=== PATIENT | female | born 1995 | race Caucasian/White ===

== ENCOUNTER 2020-09-27 11:05 | Emergency (ER) | payer OTHER, SELFPAY ==
[2020-09-27 11:18] VITALS: BP 109/88; PULSE 109; RESP 18; TEMP 36.3; O2SAT 100
--- NOTE | 2020-09-27 11:22 | ED.URI ---
HPI - URI/Sore Throat General Chief Complaint: Upper Respiratory Infection Stated Complaint: cough/congestion/earache Source: patient and RN notes reviewed Limitations: no limitations History of Present Illness HPI Narrative: The patient, previously mostly healthy and Covid vaccinated reportedly, presents with earache. Patient states she has a about a week long history of congestion and mild cough, followed by a couple day history of left ear pain. No fever, sore throat, loss of taste/smell, S OB wheezing/sneezing, CP,; symptoms are mild. Related Data Home Medications Medication Instructions Recorded Confirmed dextroamphetamine-amphetamine PO 09/27/20 [Adderall XR] erenumab-aooe [Aimovig mg SUBCUT 09/27/20 Autoinjector] sumatriptan succinate mg PO 09/27/20 Allergies Allergy/AdvReac Type Severity Reaction Status Date / Time No Known Allergies Allergy Unverified 05/22/18 09:42 Review of Systems Review of Systems: Narrative: General/Constitutional: No weight loss,fever Eyes: N0: Redness,discharge Ears/Nose/Throat: No: Epistaxis,ear discharge Respiratory: Denies: Hemoptysis Gastrointestinal: No Vomiting, Bleeding-rectal Skin: No Lumps, eruption Neurologic: No Focal Weakness,Sz Hematologic: Denies: Petechiae/Purpura Psychiatric: No: Suicida ideationl All Other Systems: Reviewed and Negative PMFSH Comments At time of signature, agree with nursing past medical, surgical, social and family history. There is no relevant family history pertinent to the presenting complaint Exam Narrative: Exam Narrative: General Appearance: Well appearing, Well nourished EYE: PERRLA, Conjunctiva clear Ears: Auditory canal normal, left TM bulging red, right TM normal Nose: Rhinorrhea, Mucousal erythema Mouth/Throat: MM moist, Uvula midline, Pharyngeal erythema Neck: Supple, No adenopathy Respiratory: No respiratory distress, Breath sounds equal, Clear to auscultation Cardiovascular: RRR, No JVD Musculoskeletal: Non tender, Normal strength Skin: Warm, Dry Neurological: A&O x3, Normal affect Course Vital Signs Vital signs: Vital Signs Temperature 97.3 F L 09/27/20 11:18 Pulse Rate 109 H 09/27/20 11:18 Respiratory Rate 18 09/27/20 11:18 Blood Pressure 109/88 09/27/20 11:18 Pulse Oximetry 100 09/27/20 11:18 Temperature 97.3 F L 09/27/20 11:18 Pulse Rate 109 H 09/27/20 11:18 Respiratory Rate 18 09/27/20 11:18 Blood Pressure 109/88 09/27/20 11:18 Pulse Oximetry 100 09/27/20 11:18 Discharge Plan Discharge Clinical Impression: Acute otitis media, left Patient Disposition: Home, Self-Care Condition: Stable Instructions: Antibiotic Form, Ear Infection (GEN) Prescriptions: New azelastine 137 mcg (0.1 %) aerosol,spray 137 mcg NASAL Q12H Qty: 30 RF: 0 cefuroxime axetil 500 mg tablet 500 mg PO Q12H Qty: 14 RF: 0 No Action sumatriptan succinate 100 mg tablet PO RF: 0 dextroamphetamine-amphetamine [Adderall XR] 20 mg capsule,extended release 24hr PO RF: 0 Aimovig Autoinjector 140 mg/mL auto-injector SUBCUT RF: 0 Follow-up/Referrals: PHYSICIAN NOT ON STAFF,NONSTAFF [Primary Care Provider] -
== END 2020-09-27 11:52 | disposition home or self-care (01) ==
PROVIDERS: Emergency Provider Emergency Medicine
DX: H66.92 Otitis media, unspecified, left ear (principal); Z20.822 Contact with and (suspected) exposure to COVID-19
CPT/HCPCS: 87426; 99213; C9803; G0463

== ENCOUNTER 2021-03-23 19:02 | Emergency (ER) | payer OTHER, SELFPAY ==
[2021-03-23 19:08] VITALS: BP 129/88; PULSE 88; RESP 16; TEMP 36.3; O2SAT 100
--- NOTE | 2021-03-23 19:30 | ED.FEMALEGU ---
HPI - Female Genitourinary General Chief complaint: Urogenital-Female Stated complaint: UTI Time Seen by Provider: 03/23/21 19:10 Source: patient and RN notes reviewed History of Present Illness HPI Narrative: Patient is a 25-year-old female who presents the urgent care with complaints of a possible UTI. Patient states that for the last 2 days she has had burning and frequency of urination. Patient denies any fever, chills, nausea, vomiting. Denies of any [id number] medication for symptom relief. Patient states she does have a history of UTIs with the last one being this summer. No other acute complaints. Denies of any blood in the urine, back pain, abdominal pain. No acute distress noted. Patient aware of the plan of care. Some parts of this dictation were generated by voice recognition software and may contain typographical and/or grammatical inaccuracies. Related Data Home Medications Medication Instructions Recorded Confirmed dextroamphetamine-amphetamine PO 09/27/20 [Adderall XR] erenumab-aooe [Aimovig mg SUBCUT 09/27/20 Autoinjector] sumatriptan succinate mg PO 09/27/20 etonogestrel-ethinyl estradiol vag ring VAGINAL 03/23/21 [EluRyng] Allergies Allergy/AdvReac Type Severity Reaction Status Date / Time No Known Allergies Allergy Verified 03/23/21 19:07 Review of Systems Review of Systems: CONSTITUTIONAL: Denies fever, chills, or sweats. EYES: Denies visual changes, redness, or discharge. ENT: Denies rhinorrhea, congestion, sore throat, or otalgia. CARDIOVASCULAR: Denies chest pain, palpitations, or edema. RESPIRATORY: Denies cough or dyspnea. GASTROINTESTINAL: Denies abdominal pain, nausea, vomiting, or diarrhea. GENITOURINARY: Reports of dysuria and frequency SKIN: Denies rash or itching. MUSCULOSKELETAL: Denies back pain, joint pain, or myalgia. NEUROLOGIC: Denies headache, numbness, or weakness. All other systems reviewed are negative, except as documented in HPI. PMFSH Comments GENERAL: This is a well-nourished, well-developed patient, in no apparent distress. HEAD: normocephalic, atraumatic. EYES: PERRL. Sclera clear/white. Vision is grossly intact. EARS: External ears normal, auditory canals clear and without drainage, TMs normal without perforation. Hearing grossly intact. NOSE: External nose normal with no obvious nasal discharge, nares without redness, no rhinorrhea. THROAT: Mucous membranes moist, posterior pharynx clear. NECK: Neck supple, non-tender without lymphadenopathy, masses or thyromegaly. CARDIOVASCULAR: Regular rate and rhythm without murmurs, gallops, or rubs. RESPIRATORY: Clear to auscultation. Breath sounds equal bilaterally. No wheezes, rales, or rhonchi. GASTROINTESTINAL: Abdomen soft, non-tender, nondistended. Bowel sounds are active. No hepato-splenomegaly, or palpable masses. No guarding. SKIN: warm, intact with no suspicious lesions or rash, good texture and turgor. NEURO: awake, alert, and oriented to person, place and time. There were no obvious focal neurologic abnormalities. EXTREMITIES: No clubbing, cyanosis, or edema. No joint tenderness, effusion, or edema noted. No calf tenderness. Negative Homans sign bilaterally. BACK: Nontender without deformity or crepitance. No flank tenderness. Exam Narrative: GENERAL: This is a well-nourished, well-developed patient, in no apparent distress. HEAD: normocephalic, atraumatic. EYES: PERRL. Sclera clear/white. Vision is grossly intact. EARS: External ears normal NOSE: External nose normal with no obvious nasal discharge, nares without redness, no rhinorrhea. THROAT: Mucous membranes moist NECK: Neck supple CARDIOVASCULAR: Regular rate and rhythm without murmurs, gallops, or rubs. RESPIRATORY: Clear to auscultation. Breath sounds equal bilaterally. No wheezes, rales, or rhonchi. GASTROINTESTINAL: Abdomen soft, non-tender, nondistended. SKIN: warm, intact with no suspicious lesions or rash, good texture and turg
== END 2021-03-23 19:38 | disposition home or self-care (01) ==
PROVIDERS: Emergency Provider Nurse Practitioner Family
DX: R30.0 Dysuria (principal)
CPT/HCPCS: 81003; 99212; G0463

== ENCOUNTER 2022-09-15 04:55 | Observation (INO) | payer OTHER, SELFPAY ==
[2022-09-15] VITALS (46 sets, daily range): BP systolic 100–142; BP diastolic 58–91; PULSE 57–99; RESP 10–20; TEMP 36.1–36.8; O2SAT 90–100; BMI 35.9
--- NOTE | ~2022-09-15 | US_ITS ---
US pelvic complete w TV DATE: 09/15/2022 07:50 INDICATION: Left lower quadrant, pelvic pain TECHNIQUE: Real-time imaging via transabdominal and transvaginal approaches COMPARISON: None FINDINGS: The uterus measures approximately 7 x 5 cm height, up to 3.5 cm AP dimension. The central e ndometrial echo complex measures approximately 2 mm AP dimension. The left ovary measures 2.7 x 4 x 2.8 cm, with vascular flow. The right ovary measures approximately 3 x 2.2 x 3.5 cm. There is an approximately 6 x 6.4 x 7.4 cm s imple cyst in the right adnexal area, sonolucent, with through transmission posterior enhancement. Th ere is vascular flow to the right ovary. IMPRESSION: 7.4 cm right adnexal cyst. A large cyst such as this can be a lead point for ovarian tors ion, but vascular flow is demonstrated to the ovaries. Reviewed, dictated and finalized at [facility]. Reviewed, dictated and finalized at [facility]. IMPRESSION: 7.4 cm right adnexal cyst. A large cyst such as this can be a lead point for ovarian torsion, but vascular flow is demonstrated to the ovaries.
--- NOTE | ~2022-09-15 | CT_ITS ---
EXAMINATION: CT abdomen pelvis wo con DATE: 09/15/2022 09:24 INDICATION: Left lower quadrant abdominal pain TECHNIQUE: Computed tomography (CT) of the abdomen and pelvis was performed without intravenous contr ast. Automated exposure control and iterative reconstruction technique were employed. Exam dose: 972 .88 mGy-cm total exam DLP. COMPARISON: None FINDINGS: The lung bases are clear of infiltrate or consolidation. Normal heart size. No pericardial or pleural effusion. The liver, gallbladder, bile duct, spleen, pancreas, pancreatic duct, adrenal glands and kidneys are unremarkable. No urinary tract calculus or hydroureteronephrosis. The urinary bladder and uterus are unremarkable. There is an approximately 6.5 x 7.2 mm cystic lesion with attenuation of 25 Hounsfield units is noted in the right adnexal area. Normal caliber of the abdominal aorta. No intraperitoneal or retroperitoneal or pelvic mass lesion or adenopathy or ascites is noted otherwise. Small sliding hiatal hernia. Normal appendix. No bowel obstruction or intraperitoneal free air. IMPRESSION: Approximately 7 cm right adnexal cystic lesion Reviewed, dictated and finalized at [facility] Reviewed, dictated and finalized at [facility].
[2022-09-15] MEDS: HYDROmorphone HCL INJ (*CRX) 1 MG/ML SYR IV PUSH ×3 (05:25→15:55)
--- NOTE | 2022-09-15 05:27 | ED.ABDPAIN ---
HPI - Abdominal Pain General Chief Complaint: Abdominal Pain <Shiva Alamo MD - Last Filed: 09/16/22 18:15> Stated Complaint: left pelvic pain, hx of ovarian cysts <Shiva Alamo MD - Last Filed: 09/16/22 18:15> Time Seen by Provider: 09/15/22 05:04 <Shiva Alamo MD - Last Filed: 09/16/22 18:15> History of Present Illness HPI narrative: 26-year-old female presents emergency department for evaluation of cute onset of left lower quadrant pain at approximately 230 this morning. Patient was having lower abdominal pain earlier in the week and was seen at an outside hospital and diagnosed with a large ovarian cyst on the right. Patient reports that her pain had been improved but then had acute worsening of the left lower quadrant pain at 230 this morning. Patient arrived to the emergency department distress secondary due to the pain. <Shiva Alamo MD - Last Filed: 09/16/22 18:15> Related Data Home Medications: Home Medications Medication Instructions Recorded Confirmed sumatriptan succinate 100 mg tablet 100 mg PO USEASDIRECTD PRN 09/27/20 09/15/22 Migraine Headache dextroamphetamine-amphetamine 10 1 tablet PO DAILY 09/15/22 09/15/22 mg tablet escitalopram oxalate 10 mg tablet 10 mg PO DAILY 09/15/22 09/15/22 methylphenidate HCl 36 mg 36 mg PO DAILY 09/15/22 09/15/22 tablet,extended release 24 hr norelgestromin 150 mcg-e.estradiol 1 patch transdermal USEASDIRECTD 09/15/22 09/15/22 35 mcg/24 hr weekly transderm patch (Xulane) <Shiva Alamo MD - Last Filed: 09/16/22 18:15> Allergies/Adverse Reactions: Allergies Allergy/AdvReac Type Severity Reaction Status Date / Time No Known Allergies Allergy Verified 09/15/22 13:53 <Shiva Alamo MD - Last Filed: 09/16/22 18:15> Review of Systems Review of Systems: All systems reviewed & are unremarkable except as noted in HPI and below <Shiva Alamo MD - Last Filed: 09/16/22 18:15> PMFSH Past Medical History Medical History: Medical History ADHD Anxiety and depression Migraine Ovarian cyst 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 Her mother is her power employee benefits attorney. She works as a pharmacist at [employer]. code status full code Smoking status: Never smoker Alcohol intake: current Substance use: never Lack of Transportation: No Lack of Food: Never True Current Housing: I Have Housing Concerned About Future Housing: No Difficulty Paying Gas/Electric Bills: No Difficulty Paying for Meds: No Currently Unemployed: No Education: Master's Degree or Higher Difficulty w/ Childcare or Family Care: No Spiritual care concerns: No <Shiva Alamo MD - Last Filed: 09/16/22 18:15> Exam Narrative: APPEARANCE: Distress secondary to abdominal pain HEAD: normocephalic, atraumatic. EYES: PERRLA/EOMI, conjunctivae clear. NOSE: Normal no drainage EARS:TMS clear with good light reflex. THROAT: Pharynx clear, no exudate. NECK: Supple. No adenopathy, no masses. RESPIRATORY: Airway patent, respirations nonlabored. Clear to auscultation bilaterally
[2022-09-15 05:57] LABS: Basophils Percent Auto 0.2 % (0.2-1.2); Eosinophils Absolute Auto 0.2 K/mm3 (0-0.3); Eosinophils Percent Auto 3.3 % (0-4.4); Hematocrit 37.5 % (37.0-47.0); Hemoglobin 12.6 g/dL (12.0-15.0); Immature Granulocyte Absolute 0.01 K/mm3 (0.00-0.031); Immature Granulocyte Percent A 0.2 % (0-0.5); Lymphocytes Absolute Auto 1.72 K/mm3 (0.9-3.2); Lymphocytes Percent Auto 33.1 % (18.3-44.2); Mean Corpuscular HGB Conc 33.6 g/dl (32-36); Mean Corpuscular Volume 89.3 fl (80-100); Mean Platelet Volume 11.3 fl (7.4-10.4); Monocytes Absolute Auto 0.5 K/mm3 (0.1-0.6); Monocytes Percent Auto 8.8 % (2.6-8.5); Neutrophils Absolute Auto 2.8 K/mm3 (1.3-6.7); Neutrophils Percent Auto 54.4 % (45.5-73.1); Platelet Count Result 197 k/mm3 (150-375); Red Cell Distribution Width 13.5 % (11.5-14.5); White Blood Count 5.2 K/mm3 (4.5-10.0)
[2022-09-15 06:05] LABS: Lactic Acid Reflex 1.8 mmol/L (0.7-2.0)
[2022-09-15 06:06] LABS: INR 0.9; Prothrombin Time 12.5 Seconds (11.1-14.7)
--- NOTE | 2022-09-15 06:09 | PC.NURSE ---
offered pt reese, pt asked to hold for now.
[2022-09-15] MEDS: ONDANSETRON INJ 4 MG/2 ML VIAL IV PUSH ×3 (06:21→15:55)
[2022-09-15 06:56] LABS: Alanine Aminotransferase 37 U/L (6-35); Albumin Level 3.9 g/dL (3.5-5.1); Alkaline Phosphatase 73 U/L (38-126); Anion Gap 5 mmol/L (8-16); Aspartate Amino Transferase 28 U/L (14-36); Bilirubin,Total 0.7 mg/dL (0.2-1.3); Blood Urea Nitrogen 19 mg/dL (7-17); Calcium 8.4 mg/dL (8.4-10.2); Carbon Dioxide 27 mmol/L (22-30); Chloride 105 mmol/L (98-107); Estimated CRCL calculation 101 ml/min; Estimated Glomerular Filt Rate > 60; Glucose 111 mg/dL (65-110); Potassium 4.3 mmol/L (3.4-5.0); Sodium 137 mmol/L (137-145)
[2022-09-15 07:04] LABS: Appearance Urine Clear (Clear); Bilirubin Urine Negative (Negative); Blood Urine Negative (Negative); Color Urine Yellow (Yellow); Glucose Urine UA Negative (Negative); Ketones Urine Negative (Negative); Leukocyte Esterase Ur Negative LEU/UL (Negative); Nitrate Urine Negative (Negative); Protein Urine Negative (Negative); Specific Grav Ur 1.028 (1.001-1.035); Urobilinogen Urine 0.2 mg/dL (<2.0); pH Urine 6.5 (5.0-9.0)
[2022-09-15 07:12] LABS: Add Urine Microscopic? NO
[2022-09-15] MEDS: KETOROLAC 30 MG/ML VIAL (*BKC) IV PUSH (10:37)
--- NOTE | 2022-09-15 12:59 | PM.IMHP ---
H&P: HPI History of Present Illness Date/Time: 09/15/22 12:59 Chief Complaint: Abdominal pain Narrative: This is a 26-year-old female patient who has a history of ovarian cyst and migraines. She came to the emergency room today with complaints of left lower quadrant pain that started around 230 this morning. She has had lower abdominal pain earlier this week and was seen at an outside hospital and diagnosed a large ovarian cyst on the right. The patient stated that initially her pain got better but then she woke up and it was worse this morning. Abdominal pelvis CT approximate 7 cm right adnexal cystic lesion. Pelvic transvaginal ultrasound was read as 7.4 cm right adnexal cyst. A large cyst such as this can be a lead point for ovarian torsion, but vascular flow is demonstrated to the ovaries.? The patient also endorses nausea. The patient was given Dilaudid, Toradol, Zofran, and morphine in the emergency room. Her O2 saturations dropped down to 90s and was placed on oxygen at 2 L per nasal cannula. Patient also had periods of apnea with shallow respirations. The patient is being admitted to observation status on the date of service of 09/15/2022. Review of Systems Review of Systems: All systems reviewed & are unremarkable except as noted in HPI and below Constitutional: Constitutional: Reports as per HPI and Reports no additional constitutional complaints Eyes: Eyes: Reports as per HPI and Reports no additional eye complaints ENT: Reports system reviewed and no additional complaints, except as documented and Reports Normal hearing present Cardiovascular: Cardiovascular: Reports no additional cardiovascular complaints Respiratory: Respiratory: Reports no additional respiratory complaints and Reports no additional respiratory complaints Gastrointestinal: Gastrointestinal: Reports as per HPI and Reports no additional gastrointestinal complaints Musculoskeletal: Musculoskeletal: Reports no additional musculoskeletal complaints Integumentary/Breasts: Skin/Breast: Reports system reviewed and no additional complaints, except as docu and Reports as per HPI Neurologic: Reports system reviewed and no additional complaints, except as documented, Reports as per HPI and Reports Normal hearing present Psychiatric: Psychiatric: Reports no additional psychiatric complaints and Reports as per HPI Endocrine: Endocrine: Reports no additional endocrine complaints Hematologic/Lymphatic: Hematologic/Lymphatic: Reports no additional hematologic/lymphatic complaints Allergic/Immunologic: Allergic/Immunologic: Reports no additional allergic/immunologic complaints [facility] Past Medical History Medical History ADHD Anxiety and depression Migraine Ovarian cyst 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 Her mother is her power regulatory attorney. 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
[2022-09-15] MEDS: SODIUM CHLORIDE 0.9% IV 1,000 ML 100 ML IV CONT (14:21)
--- NOTE | 2022-09-15 16:46 | WPDCN ---
Assessment and Plan Assessment and plan (1) Left lower quadrant abdominal pain: Code(s): R10.32 - Left lower quadrant pain Status: Acute (2) Ovarian cyst: Code(s): N83.209 - Unspecified ovarian cyst, unspecified side Status: Acute Plan Discussion with patient/significant other / mother regarding need for removal of cyst to help with her discomfort as well as to prevent torsion of this ovary. Also I have discussed with them that while this most likely is the cause of her discomfort there may be other issues though nothing has been elucidated at this time. Therefore we will proceed with laparoscopic evaluation and removal of cyst and continue to monitor overnight to be sure there are no other symptoms or problems prior to likely discharge tomorrow morning as long as are no other significant issues which occur. 1. Laparoscopic evaluation 2. Adnexal / ovarian cystectomy, possible oophorectomy HPI Data of Consult Date/Time: 09/15/22 16:46 Requesting Physician: Tanner Anand MD Primary Care Provider: PHYSICIAN NOT ON STAFF Consult Narrative Narrative: Natividad Bender is a 26 year old female who presented the emergency room last night with left lower quadrant pain. Have been seen earlier in the week with left lower quadrant pain found to have a right ovarian cyst which was not thought to be be etiology of her discomfort is she was discharged home with pain medication and to follow up with her physicians. She called her mortgage loan specialist though no intervention was planned and was doing reasonably well in till had a severe onset of left lower quadrant pain again last night which brought her to our emergency room. CT scan ultrasound does show right ovarian/adnexal simple cyst with no other abnormalities. denies any nausea vomiting constipation diarrhea or significant urologic symptoms. Does have a known history of migraines but states this is no different and does not play a role in any of her symptomatology at this time. 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 Her mother is her power contract attorney. 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 Smoking status: Never smoker Alcohol intake: current Substance use: never Lack of Transportation: No Lack of Food: Never True Current Housing: I Have Housing Concerned About Future Housing: No Difficulty Paying Gas/Electric Bills: No Difficulty Paying for Meds: No Currently Unemployed: No Education: Master's Degree or Higher Difficulty w/ Childcare or Family Care: No Spiritual care concerns: No Meds Home Medications and Allergies Home Medications Medication Instructions Recorded Confirmed Type sumatriptan succinate 100 mg tablet 100 mg PO USEASDIRECTD PRN 09/27/20 09/15/22 History Migraine Headache dextroamphetamine-amphetamine 10 1 tablet PO DAILY 09/15/22 09/15/22 History mg tablet escitalopram oxalate 10 mg tablet 10 mg PO DAILY 09/15/22 09/15/22 History methylphenidate HCl 36 mg 36 mg PO DAILY 09/15/22 09/15/22 History tablet,extended release 24 hr norelgestromin 150 mcg-e.
--- NOTE | 2022-09-15 17:27 | WPDANESEPPF ---
Anes - Initial Pre Proc Eval Procedure: Operation Date: 09/15/22 18:00 Proposed Procedures p Diagnostic Laparoscopy Pos Lap Lap Bilat Salpingo oophorectomy - Ross Masterson MD Date/Time: 09/15/22 17:27 Surgeon: Tanner Anand MD Pre Op Diagnosis: Intractable abdominal pain Patient Data Age: 26 Gender: F Height: 1.7 m Weight: 104 kg Last Vital Signs Temp 36.1 C L 09/15/22 14:00 Pulse 62 09/15/22 16:00 Resp 14 09/15/22 14:00 BP 129/76 09/15/22 15:58 Pulse Ox 100 09/15/22 14:00 O2 Del Method Room Air 09/15/22 14:00 Allergies Allergy/AdvReac Type Severity Reaction Status Date / Time No Known Allergies Allergy Verified 09/15/22 13:53 Home Medications Medication Instructions Recorded Confirmed Type sumatriptan succinate 100 mg tablet 100 mg PO USEASDIRECTD PRN 09/27/20 09/15/22 History Migraine Headache dextroamphetamine-amphetamine 10 1 tablet PO DAILY 09/15/22 09/15/22 History mg tablet escitalopram oxalate 10 mg tablet 10 mg PO DAILY 09/15/22 09/15/22 History methylphenidate HCl 36 mg 36 mg PO DAILY 09/15/22 09/15/22 History tablet,extended release 24 hr norelgestromin 150 mcg-e.estradiol 1 patch transdermal USEASDIRECTD 09/15/22 09/15/22 History 35 mcg/24 hr weekly transderm patch (Xulane) Laboratory Tests 09/15/22 09/15/22 09/15/22 05:35 05:37 06:29 WBC 5.2 K/mm3 (4.5-10.0) RBC 4.20 M/mm3 (4.2-5.4) Hgb 12.6 g/dL (12.0-15.0) Hct 37.5 % (37.0-47.0) MCV 89.3 fl (80-100) MCH 30.0 pg (26-34) MCHC 33.6 g/dl (32-36) RDW 13.5 % (11.5-14.5) Plt Count 197 k/mm3 (150-375) MPV 11.3 H fl (7.4-10.4) Immature Gran % (Auto) 0.2 % (0-0.5) Neut % (Auto) 54.4 % (45.5-73.1) Lymph % (Auto) 33.1 % (18.3-44.2) York % (Auto) 8.8 H % (2.6-8.5) Eos % (Auto) 3.3 % (0-4.4) Baso % (Auto) 0.2 % (0.2-1.2) Lymph # (Auto) 1.72 K/mm3 (0.9-3.2) York # (Auto) 0.5 K/mm3 (0.1-0.6) Eos # (Auto) 0.2 K/mm3 (0-0.3) Baso # (Auto) 0.0 K/mm3 (0.0-0.1) Abs Immat Gran (auto) 0.01 K/mm3 (0.00-0.031) Absolute Neuts (auto) 2.8 K/mm3 (1.3-6.7) Absolute Nucleated RBC 0.0 K/mm3 (0.0-0.012) Nucleated RBC % 0.0 % (0.0-0.2) PT 12.5 Seconds (11.1-14.7) INR 0.9 APTT 26.0 SECONDS (22.3-36.8) Sodium 137 mmol/L (137-145) Potassium 4.3 mmol/L (3.4-5.0) Chloride 105 mmol/L (98-107) Carbon Dioxide 27 mmol/L (22-30) Anion Gap 5 L mmol/L (8-16) BUN 19 H mg/dL (7-17) Creatinine 0.90 mg/dL (0.7-1.0) Estim Creat Clear Calc 101 ml/min Estimated GFR > 60 (59 - ) Glucose 111 H mg/dL (65-110) Lactic Acid 1.8 mmol/L (0.7-2.0) Calcium 8.4 mg/dL (8.4-10.2) Total Bilirubin 0.7 mg/dL (0.2-1.3) AST 28 U/L (14-36) ALT 37 H U/L (6-35) Alkaline Phosphatase 73 U/L (38-126) Total Protein 7.0 g/dL (6.3-8.2) Albumin 3.9 g/dL (3.5-5.1) Urine Color Urine Appearance Urine pH Ur Specific Sharon Urine Protein Urine Glucose (UA) Urine Ketones Ur Blood (Man) Urine Nitrate Urine Bilirubin Urine Urobilinogen Leukocyte Esterase Rfl Blood Type A Positive Antibody Screen Negative 09/15/22 06:57 WBC RBC Hgb Hct MCV MCH MCHC RDW Plt Count MPV Immature Gran % (Auto) Neut % (Auto) Lymph % (Auto) York % (Auto) Eos % (Auto) Baso % (Auto)
[2022-09-15] MEDS: LACTATED RINGERS 1,000 ML 30 ML IV CONT ×2 (17:55→18:54)
--- NOTE | 2022-09-15 18:58 | W.PM.PROC2 ---
Procedure Note - Detailed Date of Procedure 09/15/22 Pre-op Diagnosis 1. Left lower quadrant pain 2. Right ovarian cyst Post-op Diagnosis Other (1. Left paratubal cyst/torsed) Procedure Performed 1. Diagnostic laparoscopy 2. Left partial salpingectomy Surgeon Ross Masterson MD Anesthesia General Findings 1. Uterus without abnormality 2. Right tube and ovary without abnormality 3. Left ovary without abnormality 4. Large torsed left paratubal cyst Description of Procedure Patient prepped and draped in the usual manner for this procedure. Cervical instruments were placed for uterine mobility throughout the case. Abdominal midline port was placed under direct visualization. Findings were noted as above and then both lower quadrant incisions were then placed under direct visualization. Right tube and ovary and uterus without abnormality and all of the abnormality was in the left adnexa. Initial evaluation of the left adnexa did appear to have a large cyst which was torsed seeing the left ovary and it did appear dusky and garcia. Further evaluation, however, revealed large paratubal cyst which was torsed around the infundibulopelvic ligament therefore decreasing blood supply to the ovary. The torsion was released and the ovary normalized and was white and pink. Decision at this point was made to remove the left tube and this was done using the Harmonic scalpel across the tube itself and then the mesial salpinx to release both the cyst as well as the fallopian tube. Ovary again inspected and was white and pink and did appear viable. Nothing further was done to this ovary and the specimen removed through the right lower quadrant incision. Irrigation was undertaken there was no bleeding and David was placed empirically over the incision sites over the mesial salpinx and ovary. Gas was allowed to escape trocars removed and the a incisions were then approximated using 4-0 Monocryl. Patient was then sent to recovery room stable condition with her immediate postoperative condition excellent. Estimated Blood Loss 10 Urine Output 50 Drains No Packing No Pathology Yes Complications No immediate complications Condition Stable Disposition PACU [facility] Billing Surgery - Charge Forward: Surgery Billing
[2022-09-15] MEDS: HYDROmorphone HCL INJ (*CRX) 1 MG/ML SYR 0.25 MG IV PUSH ×4 (19:28→19:39)
--- NOTE | 2022-09-15 20:29 | PC.NURSE ---
PATIENT RETURN FROM OR VIA BED AT 2019.
[2022-09-16 02:10] VITALS: BP 102/49; PULSE 63; RESP 13; TEMP 36.2; O2SAT 97
[2022-09-16 05:45] VITALS: BP 106/49; PULSE 71; RESP 12; TEMP 36.1; O2SAT 97
[2022-09-16 06:20] VITALS: BP 128/72
[2022-09-16] MEDS: HYDROcodone/acetaminophen (*CRX) 5-325 MG TABLET 1 TAB PO (08:02)
[2022-09-16] MEDS: ESCITALOPRAM OXALATE 10 MG TABLET PO (08:03)
[2022-09-16] MEDS: SUMAtriptan SUCCINATE 25 MG TABLET 100 MG PO (08:39)
--- NOTE | 2022-09-16 09:56 | WPDANESPN ---
Anes - Prog Note Post-Op Date/Time: 09/16/22 09:56 Vital Signs: Last Vital Signs Temp 36.1 C L 09/16/22 05:45 Pulse 71 09/16/22 05:45 Resp 12 09/16/22 05:45 BP 128/72 09/16/22 06:20 Pulse Ox 97 09/16/22 05:45 O2 Del Method Room Air 09/16/22 08:03 O2 Flow Rate 10 09/15/22 19:05 Pain Score (VAS): 0 I/O: Intake & Output 09/15/22 09/16/22 09/16/22 23:59 07:59 15:59 Intake Total 100 500 360 Output Total 50 250 Balance 50 250 360 Laboratory Tests 09/15/22 05:35 09/15/22 06:29 Patient Feedback: Patient satisfied with anesthetic care.
--- NOTE | 2022-09-16 10:05 | PM.DS ---
DS: Admitting Diagnosis Discharge Date 09/16/22 Admitting Diagnosis ovarian torsion DS: Discharge Diagnosis Discharge Diagnosis (1) Ovarian cyst: Code(s): N83.209 - Unspecified ovarian cyst, unspecified side Status: Acute (2) Left lower quadrant abdominal pain: Code(s): R10.32 - Left lower quadrant pain Status: Acute DS: Summary Hospital Course Hospital Course: This is a 26-year-old female patient who has a history of ovarian cyst and migraines.? She came to the emergency room today with complaints of left lower quadrant pain that started around 230 this morning.? She has had lower abdominal pain earlier this week and was seen at an outside hospital and diagnosed a large ovarian cyst on the right.? The patient stated that initially her pain got better but then she woke up and it was worse this morning.? Abdominal pelvis CT approximate 7 cm right adnexal cystic lesion.? Pelvic transvaginal ultrasound was read as?7.4 cm right adnexal cyst. A large cyst such as this can be a lead point for ovarian torsion, but vascular flow is demonstrated to the ovaries.? The patient also endorses nausea.? The patient was given Dilaudid, Toradol, Zofran, and morphine in the emergency room.? Ob-Electrical Equipment Technician was consulted. patient underwent torsion release and salpingectomy. sh is stable this AM and is being discharged home. Time Spent with Patient Time attestation: Total time spent providing and/or coordinating discharge services: DS: Data Data Completed and Pending Pending studies at discharge: Pending at discharge 09/15/22 18:38 Surgical [PTH] Routine Discharge Plan Discharge Consulting providers: Ivette Tan Discharging Clinician: Ross Masterson Patient Disposition: Home, Self-Care Activity: may shower, no straining, no driving and pelvic rest Diet: as tolerated Wound Care Instructions: incision open to air Patient Instructions: Antibiotic Form Stand Alone Forms: General Discharge Information Follow-up/Referrals: Ross Masterson MD [Physician] - 2 Weeks Discharge Medications: Continued sumatriptan succinate 100 mg tablet 100 mg PO USEASDIRECTD PRN (Reason: Migraine Headache) Rx Instructions: 1 tab daily, may repeat 2 hrs after initial dose dextroamphetamine-amphetamine 10 mg tablet 1 tablet PO DAILY methylphenidate HCl 36 mg tablet extended release 24hr 36 mg PO DAILY Xulane 150-35 mcg/24 hr patch weekly 1 patch transdermal USEASDIRECTD Rx Instructions: appy 1 patch each week for 3 weeks, then remove for 1 week escitalopram oxalate 10 mg tablet 10 mg PO DAILY oxycodone 5 mg tablet 5 mg PO Q4H PRN (Reason: pain) Qty: 20 0RF Date of admission: 09/15/22 12:16 Primary Care Provider: PHYSICIAN NOT ON STAFF,NONSTAFF Admitting Provider: Tanner Anand Attending physician on admission: Tanner Anand Condition: Stable
== END 2022-09-16 10:40 | disposition home or self-care (01) ==
LOC: ANHED 07:48 → ANH3MED 19:28
PROVIDERS: Emergency Medicine; Obstetrics & Gynecology; Admitting Provider Family Medicine; Emergency Provider Preventive Medicine Aerospace Medicine; Visit Provider Hospitalist
PROC: (CPT 49320; principal; 2022-09-15 18:00)
DX: N83.8 Other noninflammatory disorders of ovary, fallopian tube and broad ligament (principal); N83.512 Torsion of left ovary and ovarian pedicle; G43.909 Migraine, unspecified, not intractable, without status migrainosus; F90.9 Attention-deficit hyperactivity disorder, unspecified type; F41.9 Anxiety disorder, unspecified; F32.A Depression, unspecified; K44.9 Diaphragmatic hernia without obstruction or gangrene; Z79.899 Other long term (current) drug therapy
CPT/HCPCS: 58661; 36415; 74176; 76830; 76856; 80053; 81003; 81025; 83605; 85025; 85610; 85730; 86850; 86900; 86901; 87070; 87075; 87205; 88305; 96374; 96375; 96376; 99285; A9270; G0378; J1100; J1170; J1885; J2250; J2405; J2704; J3010; J7030; J7120